=== PATIENT | female | born 1965 | race Caucasian/White ===

== ENCOUNTER → 2018-08-19 18:51 | Outpatient (CLI) | payer OTHER, SELFPAY ==
--- NOTE | 2018-08-19 | DI.MRI.S_ITS ---
PROCEDURE: MR ELBOW LT W CON INDICATIONS: LATERAL EPICONDYLITIS, LEFT ELBOW TECHNIQUE: Noncontrast coronal proton density fast spin echo and T2 fast spin echo with fat saturation, axial and sagittal T1 spin echo and T2 fast spin echo with fat saturation through the elbow. COMPARISON: [facility], MR, ELBOW WITHOUT CONTRAST, 06/02/2015, 19:22. FINDINGS: Image quality: Excellent. Lateral structures: The lateral ulnar collateral ligament and radial collateral ligament both appear intact. Very mild tendinosis involving common extensor tendon origin is seen, which may represent a very low-grade lateral epicondylitis. Medial structures: The ulnar collateral ligament appears intact. The overlying common flexor tendon appears normal. The ulnar nerve appears normal in size and signal within the cubital tunnel. Anterior structures: The brachialis tendon appears intact. Again noted is distal biceps tendinosis with significant amount of bicipital radial bursal fluid and internal hypointense signal suggestive of bursitis. There is also suggestion of distal biceps tendon intrasubstance partial-thickness tear at its insertion the proximal radius. The median and radial neurovascular bundles appear normal; no focal muscle atrophy to suggest nerve impingement. Posterior structures: The conjoint triceps tendon from the long and lateral heads appears intact. The medial head of the triceps tendon also appears normal, with direct muscle insertion onto the olecranon. No olecranon bursal fluid. Bone and cartilage: There is marrow edema involving proximal radial shaft adjacent to the above mentioned fluid distended bicipital radial bursa and at the level of distal biceps tendon insertion site. No discrete fracture. No osteochondral injuries. IMPRESSION: 1. Suggestion of chronic tendinosis and moderate grade partial-thickness tear involving distal biceps tendon at its proximal radial insertion with adjacent marrow edema involving proximal radius. Persistent fluid distention of bicipital radial bursa with internal debris suggestive of bursitis. 2. Very low-grade tendinosis involving common extensor tendon origin which may indicate very mild lateral epicondylitis. Dictated by: Dexter Hansen M.D. on 08/20/2018 at 10:21 Approved by: Dexter Hansen M.D. on 08/20/2018 at 10:29
== END ==
PROVIDERS: Family Provider Specialist; PCP Specialist; Visit Provider Orthopaedic Surgery
DX: M77.12 Lateral epicondylitis, left elbow (principal)
CPT/HCPCS: 73221

== ENCOUNTER 2019-05-26 14:30 | Outpatient (RCR) | payer OTHER, SELFPAY ==
--- NOTE | 2019-04-24 15:10 | ST.OPIE ---
Visit Care Team Role Provider Type Kaylah Nguyễn Primary Care Provider Non-Staff Specialty: Family Practice Address: [address] [place] [address], [phone] Fax: Email: Dung Kraft MD Attending Provider Non-Staff Referring Provider Specialty: Gastroenterology Address: [address] [place], [address] Email: Speech-Language Pathology Initial Evaluation ELECTRICAL LABORATORY TECHNICIAN Clinical Swallow Evaluation Start: 04/23/19 12:18 Freq: Status: Active Protocol: Document 04/22/19 11:54 LNK (Rec: 04/24/19 12:24 LNK [id number]) Clinical Swallow Evaluation Session Time Visit Start Time 14:30 Visit Stop Time 15:30 Total Visit Minutes 60 Visit Information Visit Number Plan of Care Dates 04/22/19-08/21/[address] Dung Kraft Reason for Referral aerophagia, dysphagia - pharyngoesophageal phase Setting Assessment Location Outpatient Care Visit Type Note Type Initial Evaluation Next Note Type Next Note Type Treatment Note Patient Information Identification Type Name,Picture History PMI: ACDF Heartburn/reflux Sleep Apnea Anxiety Hysterectomy Yessi was seen for evaluation of her swallowing. Specifically she has recently been diagnosed with aerophagia . Yessi reported that this behavior started about 2 years ago. She has seen many specialists regarding her burping. A MBS study at the [facility] indicated a normal oral phase. Pharyngeally, it was reported that there is reduced anterior movement of the hyoid bone and incomplete closure of the laryngeal vestibule. Penetration of thin and necter thick liquids was observed. No aspiration was observed. Additionally, it was reported that aerophagia was observed throughout the examination. Yessi also had an EGD which showed a small benign squamous papilloma (which was removed) with otherwise normal tissue. Yessi has sleep apnea and has tried a CPAP device, which was unsuccessful. Yessi reported the CPAP exacerbated her burping. Yessi denies drinking carbonated beverages, chewing gum or sucking on candy, eating/drinking quickly or mouth breathing. Because the hyoid's forward excursion is reduced, the epiglottis inversion is incomplete, resulting in incomplete closure and penetration. Subjective Observations Yessi was accompanied by her . She brought several files with her containing her medical history/reports. Evaluation Liquids Trialed Thin Oral Impairment WFL Pharyngeal Phase Comments Thin liquids were trialed with Yessi. Upon palpation, hyolaryngeal elevation appeared to be WFL. She has an audible swallow with simultaneous air injection, followed by an immediate burp. The air injection occurred with single sips as well as consecutive sips and was followed by burping. It seemed like the bolus was swallowed and retained in the upper esophagus until burped. Findings Dysphagia Type pharyngoesophageal Rehabilitation Potential Good Impressions A review of the literature describes this phenomenon as a supragastric belch. This is defined as the belch not originating from the stomach but is ingested immediately before it is expelled again... not as a reflex, but the result of human behavior ( Clinical Gastroenterology and Heptology 2013; 11 6-12).. The underlying mechanism of supragastric belch may be the result of a contraction of the diaphragm leading to suction into the esophagus or the pt injecting air into the esophagus by simultaneous contractions of the base of tongue and the pharynx (page 6 ). Yessi presents with other behaviors that could be contributory to her aeophagia: anxiety, thoracic breathing, heartburn/reflux, sleep apnea. Therapy for aerophagia is recommended. This therapy consists of behavioral changes such as improving abdominal breathing, increasing awareness of air injection, modification of how the pt swallows, and stress management . Treatment Plan Appropriate for Therapy Yes Therapy Recommendations Possible referral for reflux, any further testing as indicated Dysphagia Goals Yessi will use abdominal breathing to enable slow relaxed breathing for speech and swallowing effectively. Swallow exercised to increase forward movement of the hyoid in order to achieve better vestibular seal. Modification of swallowing (i. e., bolus hold, increased awareness of swallow) to reduce air injection ELECTRICAL LABORATORY TECHNICIAN Follow Up weekly Referrals/Other Recommended Referrals GI Consult
--- NOTE | 2019-05-15 16:38 | ST.IPDYTX ---
Visit Care Team Role Provider Type Kaylah Markjerome Primary Care Provider Non-Staff Specialty: Family Practice Address: [address] [place] [address], [address] Fax: Email: Dung Kraft MD Attending Provider Non-Staff Referring Provider Specialty: Gastroenterology Address: [address] [place], [address] Email: RECOVERY COLLECTOR Dysphagia Treatment RECOVERY COLLECTOR Dysphagia Treatment Start: 04/23/19 12:18 Freq: Status: Active Protocol: Document 05/15/19 15:47 LNK (Rec: 05/15/19 16:37 LNK [id number]) Dysphagia Treatment Session Time Visit Start Time 13:50 Visit Stop Time 14:30 Total Visit Minutes 40 Visit Information Visit Number Plan of Care Dates 04/22/19-08/21/19 Setting Assessment Location Outpatient Care Visit Type Note Type Treatment Note Next Note Type Next Note Type Treatment Note Patient Information Identification Type Name,Picture Subjective Observations Yessi and her attended the session. Treatment Solids Trialed Regular Treatment Activities Yessi has a diagnosis of aerophagia; however based on her symptoms her injection of air during swallow would be more indicative of supragastric belching, which is considered a behavioral problem. After discussion with the pt regarding suprgastric belching , trial bolus hold strategy was described to pt. Crackers were then chewed by the pt until ready to swallow. With 1:1 cueing through the swallow , pt swallowed well, then moved her neck forward pushing air into her esophagus. Second trial with the cracker: instructions to sniff air in several times following her swallow. Pt did not inject air nor belch following 2 boluses. (sniff=distraction). . Pt was instructed to practice bolus hold exercise 10 times for 2 sets (afternoon and morning). Additionally, the pt was instructed in the rapid jaw opening exercises and the Back of Tongue exercise. Each exercise to be completed as directed 2x/day/ Assessment Patient Response to Treatment Good Rehab Potential Good Treatment Plan Dysphagia Goals Pt will report a reduction in the frequency of burps following each swallow.
--- NOTE | 2019-05-26 17:22 | ST.IPDYTX ---
Visit Care Team Role Provider Type Kaylah Nguyễn Primary Care Provider Non-Staff Specialty: Family Practice Address: [address] [place] [address], [address] Fax: Email: Dung Kraft MD Attending Provider Non-Staff Referring Provider Specialty: Gastroenterology Address: [address] [place], [address] Email: DESKTOP PUBLISHING OPERATOR Dysphagia Treatment DESKTOP PUBLISHING OPERATOR Dysphagia Treatment Start: 04/23/19 12:18 Freq: Status: Active Protocol: Document 05/26/19 17:07 LNK (Rec: 05/26/19 17:21 LNK [id number]) Dysphagia Treatment Session Time Visit Start Time 14:30 Visit Stop Time 15:30 Total Visit Minutes 60 Visit Information Visit Number [id number] Plan of Care Dates 04/22/19-08/21/19 Setting Assessment Location Outpatient Care Visit Type Note Type Treatment Note Next Note Type Next Note Type Treatment Note Patient Information Identification Type Name,Picture Subjective Observations A review of the literature describes this phenomenon as a supragastric belch. This is defined as the belch not originating from the stomach but is ingested immediately before it is expelled again... not as a reflex, but the result of human behavior ( Clinical Gastroenterology and Heptology 2013; 11 6-12).. The underlying mechanism of supragastric belch may be the result of a contraction of the diaphragm leading to suction into the esophagus or the pt injecting air into the esophagus by simultaneous contractions of the base of tongue and the pharynx (page 6 ). Yessi presents with other behaviors that could be contributory to her aeophagia: anxiety, thoracic breathing, heartburn/reflux, sleep apnea. Therapy for aerophagia is recommended. This therapy consists of behavioral changes such as improving abdominal breathing, increasing awareness of air injection, modification of how the pt swallows, and stress management . Treatment Liquids Trialed Thin Solids Trialed Regular Treatment Activities Yessi brought the CD of her MBS study to review with me. We discussed the amount of air that is seen during every swallow. The air noted appears to originate from the upper pharyngeal area. Possible during swallowing she inhales, causing air to be swallowed. Or air escaped her trachea during swallowing. It was observed that her epiglottic inversion was incomplete with several observed instances of contrast penetration into the laryngeal vestibule. Trials bolus hold strategy was assessed for benefit. Yessi remarked that for solids, she seems to be less gassy using the bolus hold. Liquids remain problematic. Suggested she start home practice with a pudding/yogurt, then move to applesauce, then move to a nectar and finally thin liquids using a bolus hold in order for her to habituate the swallow from solids-> liquids . Crackers were then chewed by the pt until ready to swallow . With 1:1 cueing through the swallow, pt swallowed well, then moved her neck forward pushing air into her esophagus . Second trial with the cracker: instructions to sniff air in several times following her swallow. Pt did not inject air nor belch following 2 boluses. (sniff= distraction). . Pt was instructed to practice bolus hold exercise 10 times for 2 sets (afternoon and morning). Additionally, the pt was instructed in the rapid jaw opening exercises and the Back of Tongue exercise. Each exercise to be completed as directed 2x/day/ Assessment Patient Response to Treatment Good Rehab Potential Good Assessment of Improvement A review of the literature describes this phenomenon as a supragastric belch. This is defined as the belch not originating from the stomach but is ingested immediately before it is expelled again... not as a reflex, but the result of human behavior ( Clinical Gastroenterology and Heptology 2013; 11 6-12).. The underlying mechanism of supragastric belch may be the result of a contraction of the diaphragm leading to suction into the esophagus or the pt injecting air into the esophagus by simultaneous contractions of the base of tongue and the pharynx (page 6 ). Yessi presents with other behaviors that could be contributory to her aeophagia: anxiety, thoracic breathing, heartburn/reflux, sleep apnea. Therapy for aerophagia is recommended. This therapy consists of behavioral changes such as improving abdominal breathing, increasing awareness of air injection, modification of how the pt swallows, and stress management . Diet Recommendations Recommendations Continue Current Diet Treatment Plan Appropriate for Continued Therapy Yes Dysphagia Goals Pt will report a reduction in the frequency of burps following each swallow. Follow Up Plan weekly Referrals/Other Recommended Referrals GI Consult
--- NOTE | 2019-09-29 10:24 | ST.IPDYTX ---
Visit Care Team Role Provider Type Kaylah Nguyễn Primary Care Provider Non-Staff Specialty: Family Practice Address: [address] [place] [address], [address] Fax: Email: Dung Kraft MD Attending Provider Non-Staff Referring Provider Specialty: Gastroenterology Address: [address] [place], [address] Email: THERAPEUTIC SPECIALIST Dysphagia Treatment THERAPEUTIC SPECIALIST Dysphagia Treatment Start: 04/23/19 12:18 Freq: Status: Active Protocol: Document 09/29/19 10:21 LNK (Rec: 09/29/19 10:23 LNK [id number]) Dysphagia Treatment Visit Type Note Type Discharge Summary Patient Information Subjective Observations A review of the literature describes this phenomenon as a supragastric belch. This is defined as the belch not originating from the stomach but is ingested immediately before it is expelled again... not as a reflex, but the result of human behavior ( Clinical Gastroenterology and Heptology 2013; 11 6-12).. The underlying mechanism of supragastric belch may be the result of a contraction of the diaphragm leading to suction into the esophagus or the pt injecting air into the esophagus by simultaneous contractions of the base of tongue and the pharynx (page 6 ). Yessi presents with other behaviors that could be contributory to her aeophagia: anxiety, thoracic breathing, heartburn/reflux, sleep apnea. Therapy for aerophagia is recommended. This therapy consists of behavioral changes such as improving abdominal breathing, increasing awareness of air injection, modification of how the pt swallows, and stress mangement . Assessment Assessment of Improvement Yessi has not returned to this clinic since before COVID19. Treatment Plan Appropriate for Continued Therapy No Dysphagia Goals Will discharge at this time
== END 2019-09-30 10:55 ==
LOC: SP 14:30
PROVIDERS: PCP Family Medicine; Referring Provider Internal Medicine Gastroenterology; Visit Provider Internal Medicine Gastroenterology
DX: F45.8 Other somatoform disorders (principal)
CPT/HCPCS: 92526; 92610

== ENCOUNTER → 2019-08-06 16:59 | Outpatient (CLI) | payer OTHER, SELFPAY ==
--- NOTE | 2019-08-06 17:01 | DI.MRI.S_ITS ---
PROCEDURE: MR ELBOW LT W CON INDICATIONS: STRAIN OF UNSPECIFIED MUSCLE,FASCIA OR TENDON TECHNIQUE: Noncontrast coronal proton density fast spin echo and T2 fast spin echo with fat saturation, axial and sagittal T1 spin echo and T2 fast spin echo with fat saturation through the elbow. COMPARISON: [facility], MR, MR ELBOW LT WO CON, 08/19/2018, 19:15. FINDINGS: Image quality: Excellent. Lateral structures: The lateral ulnar collateral ligament and radial collateral ligament both appear intact. The overlying common extensor tendon is thickened demonstrating intermediate and increased T2 hyperintense signal change although the actual acuity is technically unknown. Medial structures: The ulnar collateral ligament appears intact. The overlying common flexor tendon appears normal. The ulnar nerve appears normal in size and signal within the cubital tunnel. Anterior structures: High-grade partial tear of the biceps tendon is noted. There is marked thickening and signal change of the insertion although some intact fibers are present. There is adjacent severe bicipitoradial bursal fluid collection measuring approximately 1.9 x 2.7 cm on image 23/9. There is intraluminal debris and/or blood products. Overall, this is grossly unchanged Brachialis tendon appears grossly intact The median and radial neurovascular bundles appear normal; no focal muscle atrophy to suggest nerve impingement. Posterior structures: Mild distal biceps tendinopathy, potentially chronic. No olecranon bursal fluid. Bone and cartilage: No bone marrow contusions or fractures. No osteochondral injuries. 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 on 08/07/2019 at 8:11 Approved by: Jesse Lang M.D. on 08/07/2019 at 8:21
== END ==
PROVIDERS: PCP Family Medicine; Referring Provider Orthopaedic Surgery; Visit Provider Orthopaedic Surgery
DX: S46.212A Strain of muscle, fascia and tendon of other parts of biceps, left arm, initial encounter (principal); M25.422 Effusion, left elbow
CPT/HCPCS: 73221

== ENCOUNTER → 2020-09-05 14:25 | Outpatient (CLI) | payer OTHER, SELFPAY ==
[2020-09-05 15:06] LABS: COVID19 -Nasal RAPID Negative (Negative)
== END ==
PROVIDERS: PCP Family Medicine; Visit Provider Physician Assistant
DX: Z01.812 Encounter for preprocedural laboratory examination (principal); Z20.822 Contact with and (suspected) exposure to COVID-19
CPT/HCPCS: 87635

== ENCOUNTER 2020-09-07 08:01 | Day surgery (SDC) | payer OTHER, SELFPAY ==
--- NOTE | 2020-09-07 | PATH_ITS ---
[facility] Accession Number: [id number] . 01 Material submitted: . PART A: duodenum - DUODENUM PART B: stomach - ANTRUM PART C: body - SCHATZKI RING . 02 Diagnosis: A. Duodenum, Biopsy: Duodenal mucosa with no diagnostic abnormality. Negative for active inflammation, features of sprue, dysplasia, or malignancy. . B. Stomach, Antrum, Biopsy: Antral and body-type mucosa with mild chronic gastritis. No evidence of Helicobacter on H/E stain. Negative for intestinal metaplasia. Negative for dysplasia and malignancy. . C. Designated Schatzki Ring, Biopsy: Squamous and columnar mucosa with mild active inflammation. Negative for intestinal metaplasia. Intraepithelial eosinophils are not increased. Negative for dysplasia and malignancy. [facility] 09/09/2020 1407 Local . 02 Comment: B. An immunohistochemical stain will be performed to evaluate for Helicobacter organisms and the results reported as an addendum. . . . 02 Electronically signed: . Joann Caballero MD, Pathologist NPI- [id number] . 01 Gross description: . Part A: DUODENUM: Received in formalin are 3 fragment(s) of gramajo, soft tissue measuring 0.4 x 0.2 x 0.2 cm to 0.3 x 0.2 x 0.2 cm submitted entirely in 1 cassette(s) Part B: ANTRUM: Received in formalin are 4 fragment(s) of gramajo, soft tissue measuring 0.4 x 0.2 x 0.2 cm to 0.1 x 0.1 x 0.1 cm submitted entirely in 1 cassette(s) Part C: SCHATZKI RING: Received in formalin is 1 fragment(s) of gramajo, soft tissue measuring 0.4 x 0.2 x 0.1 cm submitted entirely in 1 cassette(s) /FORTINO 09/08/2020 0435 Local . 02 Pathologist provided ICD-10: R10.13 . 02 CPT . 046662, [id number], [id number], [id number] Performed at: [facility] [address] [id number] MD Jean Claude Ma MD Phone: [phone] Performed at: [address] [place] [id number] [place] [id number] MD Joann Caballero MD Phone: [phone]
[2020-09-07 08:38] VITALS: BP 111/70; PULSE 76; RESP 16; TEMP 36.6; O2SAT 97; BMI 25.7
[2020-09-07] MEDS: LACTATED RINGERS 1,000 ML 42 ML IV (08:46)
[2020-09-07 08:48] VITALS: BMI 25.7
--- NOTE | 2020-09-07 09:29 | PM.PREOP ---
Pre-operative Note COVID-19 COVID-19 status: Negative Result date/Date tested (Pos, Neg/Pending): 09/05/20 Interval Note History & Physical reviewed/Exam performed by Physician: Yes Changes to H&P: No ASA Class (for procedural sedation): II
--- NOTE | 2020-09-07 09:31 | PM.HP.1 ---
History of Present Illness History of Present Illness Date Patient Seen: 09/07/20 Time Patient Seen: 09:31 Chief complaint: SDC *$63 copay* Narrative: I reviewed the note from Dr Price. No changes. Patient History Medical History (Updated 09/07/20 @ 09:54 by Lio Hawkins MD) Cervical disc disease Dysphagia Heartburn Surgical History (Updated 09/07/20 @ 09:56 by Lio Hawkins MD) History of hysterectomy Hx of tonsillectomy S/P cervical spinal fusion Family & Social History Family history unavailable: No Social History: household members spouse Tobacco & Substance use: Smoking Status Never smoker alcohol intake frequency a few times a month Substance Use Type does not use Meds Home Medications and Allergies Home Medications Medication Instructions Recorded Confirmed Type estradiol 10 mcg vaginal tablet 10 mcg VAG 2XW #8 tab 07/31/17 09/07/20 Rx (Vagifem) Allergies Allergy/AdvReac Type Severity Reaction Status Date / Time erythromycin base Allergy Hives Verified 09/16/18 16:00 nitrofurantoin Allergy Rash Verified 09/07/20 08:34 Review of Systems Review of Systems ROS: Yes All systems reviewed with the patient and are negative except as otherwise documented Exam Vital Signs (past 8 hours): - 09/07/20 08:38 Temperature 97.8 F Pulse Rate 76 Respiratory Rate 16 Blood Pressure 111/70 Pulse Oximetry 97 Oxygen Delivery Method Room Air Const General: cooperative and comfortable Orientation: alert HENNE Head: normocephalic Ears: external ears normal Nose: external nose normal Face and sinus: normal facial exam Mouth: oral mucosae normal Eyes General: appearance normal, both eyes and all related structures Neck Neck: normal visual inspection Chest Chest: normal inspection of the chest Resp Effort & Inspection: normal respiratory effort Auscultation: clear to auscultation bilaterally Cardio Rate: regular rate Rhythm: regular rhythm Heart Sounds: no murmurs GI Inspection: normal to inspection Palpation: soft and No tender Auscultation: normal bowel sounds Skin General: no rashes or lesions noted and No jaundice Neuro General: patient alert and moves all extremities Cognition: normal cognition Speech: speech normal Extrem General: no pedal edema Psych Appearance: grossly normal Objective Imaging CT scan - abdomen: My impression: August 2020. No explanation for symptoms. Assessment & Plan Assessment & Plan narrative: Aerophagia, dyspepsia, nausea. EGD planned.
--- NOTE | 2020-09-07 10:26 | PM.OP.ENDO ---
Operative Date/Time/Diagnoses Date of procedure: 09/07/20 Time of procedure: 09:30 Pre-op diagnosis: nausea, bloating, aerophagia Post-op diagnosis: same Procedure & Clinicians Study performed: egd with biopsies Same procedure as scheduled: Yes Indications: Nausea, bloating, aerophagia Surgeon: Lio Hawkins Procedure Notes SCOAP/Timeout: Done Procedure in detail: After the risks and benefits were explained, written and verbal informed consent was obtained. The patient was brought into the procedure room and placed into the left lateral decubitus position. MAC was accomplished via anesthesiologist. The scope was introduced into the mouth through the bite block and advanced under direct visualization to the 2nd portion of the duodenum. The scope was slowly withdrawn carefully examining the mucosa for any defects or lesions. Retroflexed views were accomplished in the stomach. The stomach was decompressed, the scope was then removed from the patient who tolerated the procedure well. Scope withdrawal time: n/a Sedation minutes: 14 Specimen(s): other (Yes) Complications: none Impression: 1. Duodenum: No overt pathology identified from the bulb through to the 2nd portion. Random biopsies were acquired from the 2nd portion in the context of her bloating. 2. Stomach: There was a mild gastropathy appreciated in the antrum and biopsies were acquired for exclusion of Helicobacter pylori infection. No ulceration no mass lesions no outlet obstruction. Retroflexed views of the LES were rather unremarkable 3. Esophagus: The GE junction was at approximately 39 cm from the incisors. There was evidence of LA grade a erosive esophagitis. There is a very subtle sliding hiatal hernia with associated nonobstructing Schatzki's ring. A disruptive biopsy was acquired through the ring. The remainder of the esophagus did not demonstrate any additional pathology. Post-procedure Recommendations: Will call with biopsy results Plan for aftercare: [id number] 20 mg omeprazole once daily is recommended. Patient is encouraged to follow up in GI clinic in the next 4-6 weeks to review her response. Disposition: PACU
[2020-09-07 10:27] VITALS: BP 101/61; PULSE 69; RESP 12; TEMP 36.4; O2SAT 96
[2020-09-07 10:32] VITALS: BP 113/68; PULSE 71; RESP 13; O2SAT 98
[2020-09-07 10:41] VITALS: BP 119/67; PULSE 75; RESP 12; TEMP 36.2; O2SAT 98
[2020-09-07] MEDS: ACETAMINOPHEN 325 MG TABLET 975 MG PO (10:45)
--- NOTE | 2020-09-07 10:46 | SUR.PHASEI ---
Stable PACU pt c/o headache, Dr. Watson aware and given tylenol per order.
[2020-09-07 10:47] VITALS: BP 112/62; PULSE 82; RESP 12; TEMP 36.7; O2SAT 96
[2020-09-07 10:51] VITALS: BP 108/59; PULSE 68; RESP 14; TEMP 36.7; O2SAT 99
--- NOTE | 2020-09-07 10:57 | SUR.PHASEII ---
d/c instructions discussed with pt, meds and f/u care stressed. Pt voiced an understanding. Pt encouraged to reread instructions later today and tomorrow morning. Report to AVEL Ramos. CD and copy of xray with pt on discharge.
== END 2020-09-07 11:07 | disposition home or self-care (01) ==
PROVIDERS: PCP Family Medicine; Referring Provider Internal Medicine Gastroenterology; Visit Provider Internal Medicine Gastroenterology
PROC: 0DJ08ZZ Inspection of Upper Intestinal Tract, Via Natural or Artificial Opening Endoscopic (ICD-10-PCS; CPT 43235; principal; 2020-09-07 09:30)
DX: K29.50 Unspecified chronic gastritis without bleeding (principal); R14.0 Abdominal distension (gaseous); K22.2 Esophageal obstruction; K44.9 Diaphragmatic hernia without obstruction or gangrene; K22.10 Ulcer of esophagus without bleeding
CPT/HCPCS: 43239; J1100; J2405; J2704

== ENCOUNTER 2021-01-23 15:30 | Outpatient (RCR) | payer OTHER, SELFPAY ==
--- NOTE | 2020-12-26 17:32 | ST.IPIE ---
Visit Care Team Role Provider Type Bin Brito MD Attending Provider Non-Staff Family Provider Primary Care Provider Referring Provider Specialty: Medical Address: [address] [place] [address], [id number] Email: Current Diagnoses Other somatoform disorders (12/26/20) Past Medical History (Last Updated 09/07/20 @ 09:54 by Lio Hawkins MD) Cervical disc disease (Medical) Dysphagia (Medical) Heartburn (Medical) History of hysterectomy (Medical) Hx of tonsillectomy (Medical) S/P cervical spinal fusion (Medical) ST IP Initial Evaluation Report IMMIGRATION CASE WORKER Clinical Swallow Evaluation Start: 12/26/20 15:36 Freq: Status: Active Protocol: Document 12/26/20 15:36 CARINA (Rec: 12/26/20 16:11 CARINA [id number]) Clinical Swallow Evaluation Session Time Visit Start Time 15:30 Visit Stop Time 16:30 Total Visit Minutes 60 Visit Information Visit Number Initial Evaluation Plan of Care Dates 12/26/20 - 03/28/21 Insurance Information [facility] Referral Referring Provider Dr. Bin Brito Reason for Referral Somatoform Disorders; Aerophagia Setting Assessment Location Outpatient Care Visit Type Note Type Initial evaluation Next Note Type Next Note Type Treatment Note Patient Information Identification Type Name,ID Card History Pt is a 55-yr-old female s/p ACDF (C5-C7) in 2009, tonsillectomy 2016 to improve sleep apnea. Pt underwent MBSS with [facility] in Dec 2018, which revealed aerophagia with swallowing and injecting air, as well as penetration of liquids into airway; no aspiration. Pt reported difficulty completing study d/ t air consumption and need to burp. The pt provided a video and written report of the MBSS for this IMMIGRATION CASE WORKER's review. Significant injection of air with each swallow was observed . The pt attended Speech Therapy at this clinic with Dr. Mariel Curry in early 2019 but was discontinued after 3 visits d/t clinic close-down for COVID-19. The pt began having stomach nausea in Spring 2020, which worsened after her COVID vaccination. Endoscopic study was performed and was negative . GI recommended return to Speech Therapy for further treatment. Additional case history is significant for dental braces x2 as adult as well driver guard, the combination of which interfered with jaw alignment and mastication, which the pt reported is now normal. The pt reports belching is cyclical with 2-3 mos without belching followed by constant belching. She has identified food triggers include onion, garlic powder, and rich foods . She is attempting low FODMAP diet per GI recommendation. Additionally, she takes precautions such as eating alone and/or quietly to reduce extra air intake from talking , as talking itself also triggers belching. Of note and per pt report, one of the screws in the cervical hardware is broken, which will not be fixed unless neurological symptoms arise. Subjective Observations The pt arrived on time and provided case history secondary to medical records. Also provided video and written report of MBSS, as well as list of exercises and strategies from last Speech Therapy course. Reported by Patient Comment Pt reported Shaker and base of tongue exercises and bolus press to hard palate with hard swallow were ineffective after ~3 mos of practice and therefore discontinued. Senses a full feeling and then things pass through esophagus. This was consistent with MBSS video review. Current Diet Regular,Thin liquids Baseline Feeding Method Independent in self-feeding Objective Assessment Mental Status Alert,Responsive,Cooperative Oral Integrity WFL Dentition Within normal limits Lip Function Within normal limits Observation of Lips at Rest Symmetrical Pucker Within normal limits Lip Retraction Within normal limits Alternating Pucker/Lip Retraction Within normal limits Tongue Function Within normal limits Observations of Tongue at Rest Within normal limits Tongue Protrusion Within normal limits Tongue Lateralization Within normal limits Jaw Function Within normal limits Observations of Jaw at Rest Within normal limits Jaw Opening Within normal limits Jaw Closing Within normal limits Jaw Lateralization Within normal limits Hard/Soft Palate Function Within normal limits Observations of Hard/Soft Palate Within normal limits Nasality Within normal limits Phonation Within normal limits Respiratory Sufficiency Within normal limits Food and Liquid Trials Position During Assessment Upright (90 degrees) Liquids Trialed Thin Solids Trialed Mechanical Soft Administration Type Cup single sip,Cup consecutive sips,Self-feeding Oral Impairment Within normal limits Pharyngeal Impairment Within normal limits Comment The pt exhibited no overt s/sx of dysphagia. She did exhibit frequent small burps during oral intake and Natalie exercise, followed by greater belching 5-10 min after oral intake and Natalie exercise. MBSS video review revealed significant intake of air visible from level of epiglottis down through the esophagus. No air was visible in oral swallow phase. Pt appears to be injecting air. Strategies Attempted Effortful swallow Response/Comments No reduction of symptoms with effortful swallow. [facility] Swallow Protocol No Findings Swallowing Function Other dysphagia Swallowing Function Comments Aerophagia Severity of Swallow Impairment Moderately impaired Prognosis Good Based on Cognitive status,Age Comment The pt presents with moderate aerophagia characterized by mild burping during oral intake and performance of Natalie exercise, followed by greater belching within 5-10 minutes after these activities . Impact on Safety and Functioning No limitations Comments Impacted by physical discomfort and sleep disruption Recommendations Instrumental Assessment No Swallowing Treatment Yes Frequency Up to 5 visits Duration over 2 mos Recommended Solids Regular Recommended Liquids Thin Medication Recommendations As Tolerated Comments IMMIGRATION CASE WORKER will consult with Breakdown Person RE potential food triggers Education Patient/Caregiver Education Described results of evaluation,Patient expressed understanding of evaluation, Patient expressed agreement with goals & treatment plans Goals Short-term Goals 1. The pt will perform exercises/techniques independently to reduce air injection with oral intake and talking. Long-term Goals 1. The pt will exhibit swallow function WNL with no greater than occasional mild aerophagia symptoms to increase comfort and reduce air injection with oral intake .
--- NOTE | 2021-01-02 16:50 | ST.OPTN ---
Visit Care Team Role Provider Type Bin Brito MD Attending Provider Non-Staff Family Provider Primary Care Provider Referring Provider Address: [address] [place] [address], [id number] RETAIL LINK ANALYST Treatment Note RETAIL LINK ANALYST Treatment Note Start: 01/02/21 17:52 Freq: Status: Active Protocol: Document 01/02/21 17:53 CARINA (Rec: 01/02/21 18:07 CARINA [id number]) Speech Pathology Treatment Note Session Time Visit Start Time 15:30 Visit Stop Time 16:15 Total Visit Minutes 45 Visit Information Visit Number 1 Plan of Care Dates 12/26/20 - 03/28/21 Insurance Information [facility] Setting Treatment Setting Outpatient Care Visit Type Note Type Treatment Note Next Note Type Next Note Type Treatment Note General Information General Information Pt is a 55-yr-old female s/p ACDF (C5-C7) in 2009, tonsilectomy 2016 to improve sleep apnea. Pt underwent MBSS with [facility] in Dec 2018, which revealed aerophagia with swallowing and injecting air, as well as penetration of liquids into airway; no aspiration. Pt reported difficulty completing study d/ t air consumption and need to burp. The pt provided a video and written report of the MBSS for this RETAIL LINK ANALYST's review. Significant injection of air with each swallow was observed . The pt attended Speech Therapy at this clinic with Dr. Mariel Curry in early 2019 but was discontinued after 3 visits d/t clinic closedown for COVID-19. The pt began having stomach nausea in Spring 2020, which worsened after her COVID vaccination. Endoscopic study was performed and was negative . GI recommended return to Speech Therapy for further treatment. Additional case history is significant for oral braces x2 as adult as well adult crossing guard, the combination of which interfered with jaw alignment and mastication, which the pt reported is now normal. The pt reports belching is cyclical with 2-3 mos without belching followed by constant belching. She has identified food triggers include onion, garlic powder, and rich foods . She is attempting low FODMAP diet per GI recommendation. Additionally, she takes precautions such as eating alone and/or quietly to reduce extra air intake from talking , as talking itself also triggers belching. Of note and per pt report, one of the screws in the cervical hardware is broken, which will not be fixed unless neurologic symptoms arise. Subjective Identification Type Name,ID Card Identification Reconciled With Intake Sheet Observations/Patient Presentation The pt arrived on time. No new complaints. Chief Complaint(s) Swallowing Additional Areas of Concern Aerophagia Patient Knowledge/Awareness of RETAIL LINK ANALYST Role Good in Treatment Objective Short Term Goals 1. The pt will perform exercises/techniques independently to reduce air injection with oral intake and talking. Electric Milkers Installer Goals 1. The pt will exhibit swallow function WNL with no greater than occasional mild aerophagia symptoms to increase comfort and reduce air injection with oral intake . [ End ] Treatment Activities Consulted RE POC: Per pt's request, this RETAIL LINK ANALYST inquired at nearby hospitals for salon supervisor with more experience treating aerophagia. Provided pt with name and contact info of Kayla Brewster, RETAIL LINK ANALYST at [facility] in [place], and waiting to hear from RETAIL LINK ANALYST at [facility] as well as Beatriz Babcock, the RETAIL LINK ANALYST who facilitated pt's MBS at [facility]. Educated pt orally and in writing of likelihood of unconscious air injection habit being performed by the pt, based on MBS review. Further educated on diaphragmatic breathing and mora breathing to optimize breathing and alter dysfunctional behavior. Initiated training of diaphragmatic breathing with v /v demonstration. Pt performed in supine and upright positions with biofeedback in forms of hands on belly/chest, mirror, and book on stomach ( supine position). The pt initially strongly exhibited thoracic breathing, which improved toward diaphragmatic with supine position and biofeedback. The pt produced audible burp x1 while in supine position but reported additional burping that was not perceived by RETAIL LINK ANALYST. PT performed nasal mora breathing following RETAIL LINK ANALYST prompts; instructions also provided in writing. Re-trained pt in supraglottic swallow maneuver, which she had performed during last round of treatment without benefit. She performed maneuver appropriately, followed by frequent burping. Assessment Assessment of Overall Progress Unchanged Assessment of Improvement The pt demonstrated initial difficulty shifting breathing pattern from thoracic to diaphragmatic. Improved with supine position and biofeedback techniques. She performed supraglottic swallow maneuver, which appeared to increase burping, further indicating aerophagia during swallow. The pt did produce occasional burps (~5 that were audible to RETAIL LINK ANALYST; pt reported more that were not audible). The pt expressed disappointment that treatment did not provid immediate relief of symptoms, though she verbalized understanding that changes in behavior patterns and habits takes time. Reviewed with Patient Goals,Progress Being Made,Home Exercise Program Patient/Caregiver Understanding Good Plan Amount of Therapy Recommended 1-2 Months Frequency of Treatment Once a Week Comment May taper over time Length of Session 45 Minutes Therapeutic Contents Client Education,Home Exercise Program,Swallowing/Feeding Provided Patient/Caregiver Instruction Home Exercise Program,Plan of Care,Questions/Concerns Therapy Recommendations Continue with Current Program Other Referrals Will refer to other RETAIL LINK ANALYST if requested by pt
--- NOTE | 2021-01-23 17:23 | ST.OPTN ---
Visit Care Team Role Provider Type Bin Brito MD Attending Provider Non-Staff Family Provider Primary Care Provider Referring Provider Address: [address] [place] [address], [id number] LAB SYSTEMS ANALYST Treatment Note LAB SYSTEMS ANALYST Treatment Note Start: 01/02/21 17:52 Freq: Status: Active Protocol: Document 01/23/21 16:45 CARINA (Rec: 01/23/21 17:23 CARINA [id number]) Speech Pathology Treatment Note Session Time Visit Start Time 15:30 Visit Stop Time 16:30 Total Visit Minutes 60 Visit Information Visit Number 2 Plan of Care Dates 12/26/20 - 03/28/21 Insurance Information [facility] Setting Treatment Setting Outpatient Care Visit Type Note Type Treatment Note Next Note Type Next Note Type Treatment Note General Information General Information Pt is a 55-yr-old female s/p ACDF (C5-C7) in 2009, tonsilectomy 2016 to improve sleep apnea. Pt underwent MBSS with [facility] in Dec 2018, which revealed aerophagia with swallowing and injecting air, as well as penetration of liquids into airway; no aspiration. Pt reported difficulty completing study d/ t air consumption and need to burp. The pt provided a video and written report of the MBSS for this LAB SYSTEMS ANALYST's review. Significant injection of air with each swallow was observed . The pt attended Speech Therapy at this clinic with Dr. Mariel Curry in early 2019 but was discontinued after 3 visits d/t clinic closedown for COVID-19. The pt began having stomach nausea in Spring 2020, which worsened after her COVID vaccination. Endoscopic study was performed and was negative . GI recommended return to Speech Therapy for further treatment. Additional case history is significant for oral braces x2 as adult as well life guard, the combination of which interfered with jaw alignment and mastication, which the pt reported is now normal. The pt reports belching is cyclical with 2-3 mos without belching followed by constant belching. She has identified food triggers include onion, garlic powder, and rich foods . She is attempting low FODMAP diet per GI recommendation. Additionally, she takes precautions such as eating alone and/or quietly to reduce extra air intake from talking , as talking itself also triggers belching. Of note and per pt report, one of the screws in the cervical hardware is broken, which will not be fixed unless neurologic symptoms arise. Subjective Identification Type Name,ID Card Identification Reconciled With Intake Sheet Observations/Patient Presentation The pt arrived on time. No new complaints. Reports feeling that swallow exercises are increasing frequency of burping. She is now able to perform diaphragmatic breathing while lying down and standing but has trouble performing when sitting. She also reported being seen by Chiropractor who is targeting manual release of tension at the underside of her left rib cage. She questioned if any other such treatment might be beneficial. Finally, she reported excessive burping during a stressful situation with her dog in the middle of the night last night. Chief Complaint(s) Swallowing Additional Areas of Concern Aerophagia Patient Knowledge/Awareness of LAB SYSTEMS ANALYST Role Good in Treatment Objective Short Term Goals 1. The pt will perform exercises/techniques independently to reduce air injection with oral intake and talking. Occupational Therapy Director Goals 1. The pt will exhibit swallow function WNL with no greater than occasional mild aerophagia symptoms to increase comfort and reduce air injection with oral intake . [ End ] Treatment Activities Pt had questions related to diaphgragmatic breathing while seated and if there was a correct and/or incorrect way to burp. Questions were answered: Pt was encouraged to focus on belly extending outward forwardly and/or the rib cage extending outward to sides or through the back during diaphragmatic breathing. Focusing on rib cage movement, the pt successfully performed diaphragmatic breathing while seated. Education and feedback was provided RE potential behavioral etiology of the pt' s aerophagia, possibly as a response to stress/anxiety and most likely subconsciously enacted, as evidenced by reports of increased burping during stressful situations. Informed pt that to this LAB SYSTEMS ANALYST's knowledge there is no right or wrong way to burp; minimizing tension in the laryngeal/pharyngeal area is always recommended when possible to reduce risk of voice or swallow problems. Additionally, concern of burping correctly is likely to increase stress and anxiety around this issue and potentially perpetuate it. The pt verbalized understanding. LAB SYSTEMS ANALYST consulted with the pt and Physical Therapist Columba Kennedy, who is certified in myofascial release and Buteyko Breathing Technique, both of which Ms. Kennedy thought might be of benefit to the pt. The pt was in agreement with a trial of such therapy, and this LAB SYSTEMS ANALYST faxed Dr. Brito a request for a referral. Continued training pt in moar diaphragmatic breathing to reduce stress/ anxiety in hopes of minimizing triggers that likely result in aerophagia secondary to injection. Instructed pt to practice mora breathing 2- 3x/day as an exercise and also to perform prior to and during stressful situations to engage the parasympathetic nervous system and avoid frequency of sympathetic nervous system engagement. The pt performed appropriately and verbalized understanding. Assessment Patient Response to Treatment Fair Rehab Potential Fair Impairments Identified Dysphagia Additional Impairments Identified Aerophagia Assessment of Overall Progress Unchanged Assessment of Improvement The pt has demonstrated improved ability to perform diaphragmatic breathing but with little to no change in aerophagia symptoms. Suspect injection is a learned behavior that has, over time, become a subconscious act, likely a coping mechanism for stress, as it appears to increase in frequency and intensity during times when the pt experiences stress or anxiety. Swallowing and breathing exercises have had been of no significant benefit to the patient. In fact, the pt reports swallow exercises increase symptoms. This patient will likely benefit from working with a Speech Therapist with greater experience treating this condition. I have recommended she be seen by Kayla Brewster, LAB SYSTEMS ANALYST at [facility] in [place], and the pt has a referral in place. After consultation with Physical Therapist Columba Kennedy, it is also recommended that the pt receive Physical Therapy targeting myofascial release and Buteyko Breathing. The pt was in agreement, and a referral request was faxed to Dr. Brito immediately following the session. The pt was instructed to discontinue swallow exercises for now and to focus on mora diaphragmatic breathing to minimize and cope with stress. Reviewed with Patient Goals,Progress Being Made,Home Exercise Program Patient/Caregiver Understanding Good Plan Amount of Therapy Recommended 1-2 Months Comment 1-3 sessions until the pt transfers to [facility] Length of Session 45 Minutes Therapeutic Contents Client Education,Home Exercise Program,Swallowing/Feeding Provided Patient/Caregiver Instruction Home Exercise Program,Plan of Care,Questions/Concerns Therapy Recommendations Continue with Current Program Suggested Referral Physical Therapy
--- NOTE | 2021-09-06 15:55 | ST.OPDS ---
Visit Care Team Role Provider Type Bin Brito MD Attending Provider Non-Staff Family Provider Primary Care Provider Referring Provider Address: [address] [place] [address], [id number] [employer]ELOP[employer] INTERN Treatment Note WEB DEVELOPMENT INTERN Treatment Note Start: 01/02/21 17:52 Freq: Status: Active Protocol: Document 09/06/21 15:50 CARINA (Rec: 09/06/21 15:54 CARINA [id number]) Speech Pathology Treatment Note Visit Information Insurance Information [facility] Setting Treatment Setting Outpatient Care Visit Type Note Type Discharge Summary General Information Patient History Pt is a now 56-yr-old female s /p ACDF (C5-C7) in 2009, tonsilectomy 2016 to improve sleep apnea. Pt underwent MBSS with [facility] in Dec 2018, which revealed aerophagia with swallowing and injecting air, as well as penetration of liquids into airway; no aspiration. Pt reported difficulty completing study d/ t air consumption and need to burp. The pt provided a video and written report of the MBSS for this WEB DEVELOPMENT INTERN's review. Significant injection of air with each swallow was observed . The pt attended Speech Therapy at this clinic with Dr. Mariel Curry in early 2019 but was discontinued after 3 visits d/t clinic closedown for COVID-19. The pt began having stomach nausea in Spring 2020, which worsened after her COVID vaccination. Endoscopic study was performed and was negative . GI recommended return to Speech Therapy for further treatment. Additional case history is significant for oral braces x2 as adult as well night cleaner, the combination of which interfered with jaw alignment and mastication, which the pt reported is now normal. The pt reports belching is cyclical with 2-3 mos without belching followed by constant belching. She has identified food triggers include onion, garlic powder, and rich foods . She is attempting low FODMAP diet per GI recommendation. Additionally, she takes precautions such as eating alone and/or quietly to reduce extra air intake from talking , as talking itself also triggers belching. Of note and per pt report, one of the screws in the cervical hardware is broken, which will not be fixed unless neurologic symptoms arise. Subjective Observations/Patient Presentation This patient was last seen at which time transfer of care to [facility] in [place] was recommended per pt's request. She is discharged from services at [facility]. Additional Areas of Concern Aerophagia Objective Assistant Store Director Goals 1. The pt will exhibit swallow function WNL with no greater than occasional mild aerophagia symptoms to increase comfort and reduce air injection with oral intake Plan Therapy Recommendations Discharge from Speech Therapy
== END 2021-09-13 12:50 ==
LOC: SP 15:30
PROVIDERS: Family Provider Family Medicine; PCP Family Medicine; Referring Provider Family Medicine; Visit Provider Family Medicine
DX: F45.8 Other somatoform disorders (principal)
CPT/HCPCS: 92526; 92610

== ENCOUNTER → 2022-07-20 19:07 | Outpatient (CLI) | payer OTHER, SELFPAY ==
--- NOTE | 2022-07-20 | DI.MRI.S_ITS ---
PROCEDURE: MRFOOT LT WO CON INDICATIONS: LEFT FOOT PAIN TECHNIQUE: Noncontrast sagittal T1 spin echo and T2 fast spin echo with fat saturation, long-axis T1 spin echo and T2 fast spin echo with fat saturation, short-axis T1 spin echo with and without fat saturation and T2 fast spin echo with fat saturation through the forefoot. COMPARISON: None. FINDINGS: Image quality: Excellent. Bones and joints: Mild edema is seen at the medial base of the 2nd proximal phalanx that may be related to overlying cartilage loss versus osseous contusion or healing fracture. Osseous edema is seen within the medial hallux sesamoid with there is a longitudinally oriented T1 hypointensity that could represent a nondisplaced fracture versus chronic degenerative changes or sesamoiditis. Mild degenerative changes are seen in the lateral hallux sesamoid. The sesamoid bones are normally aligned. Moderate degenerative changes are seen at the 1st metatarsophalangeal joint. Scattered degenerative changes are seen in the interphalangeal joints of the toes. No intraosseous lesions. Soft tissues: The visualized plantar foot muscles demonstrate normal signal and bulk. Visualized flexor and extensor tendons appear intact, without tenosynovitis. The distal insertions of the peroneus brevis and longus tendons appear intact. The principal Lisfranc ligament appears intact. No interdigital mass. Sagittal images demonstrate no evidence for plantar plate tears. A ganglion cyst is partially imaged arising from the lateral sinus tarsi extending superiorly, not well seen on this exam that is tailored for evaluation of the forefoot. IMPRESSION: 1. Osseous edema within the medial hallux sesamoid may be secondary to an osseous contusion or nondisplaced fracture versus metatarsal-sesamoid degenerative changes or sesamoiditis. Mild degenerative changes in the lateral hallux sesamoid. 2. Mild focal osseous edema at the medial base of the 2nd proximal phalanx could also represent osseous contusion, healing nondisplaced fracture, or focal degenerative changes. 3. 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 Mild scattered degenerative changes in the interphalangeal joints of the toes. Approved by: Leland Crowder M.D. on 07/23/2022 at 9:09
== END ==
PROVIDERS: Family Provider Family Medicine; PCP Family Medicine; Referring Provider Student in an Organized Health Care Education/Training Program; Visit Provider Student in an Organized Health Care Education/Training Program
DX: G57.62 Lesion of plantar nerve, left lower limb (principal); M79.672 Pain in left foot; S92.919A Unspecified fracture of unspecified toe(s), initial encounter for closed fracture; R60.0 Localized edema; M19.072 Primary osteoarthritis, left ankle and foot
CPT/HCPCS: 73718